=== PATIENT | male | born 1950 | race Caucasian/White ===

== ENCOUNTER 2021-10-03 10:00 | Outpatient (CLI) | payer MEDICARE, OTHER, SELFPAY ==
--- NOTE | ~2021-10-03 | CT_ITS ---
EXAMINATION:CT lung screening DATE: 10/03/2021 10:18 INDICATION: Personal history of tobacco dependence. Current smoker with 30 pack year history. TECHNIQUE: Computed tomography (CT) of the chest was performed without intravenous contrast. Automate d exposure control and iterative reconstruction technique were employed. The dose-length product (DLP ) was 87.41 mGy-cm. COMPARISON: Chest CT 06/18/15 FINDINGS: There is mild scarring at the lung apices. There is mild emphysema. There is chronic periph eral septal thickening in the lungs with a lower lung predominance, which may be nonspecific intersti tial pneumonia or usual interstitial pneumonia. Again seen is a 4 mm nodule in right lower lobe. No p leural effusion. The heart size is normal. There are coronary artery calcifications. No pericardial e ffusion. There is mild thoracic spondylosis. IMPRESSION: 1. Lung-RADS category 2: Benign appearance or behavior. Continue annual screening with noncontrast lo w-dose chest CT in 12 months. Reviewed, dictated and finalized at location B. IMPRESSION: 1. Lung-RADS category 2: Benign appearance or behavior. Continue annual screeni ng with noncontrast low-dose chest CT in 12 months.
== END 2021-10-03 10:01 | disposition home or self-care (01) ==
LOC: ANHIMG 10:01
PROVIDERS: PCP Family Medicine; Visit Provider Family Medicine
DX: Z87.891 Personal history of nicotine dependence (principal); Z12.2 Encounter for screening for malignant neoplasm of respiratory organs
CPT/HCPCS: 71271

== ENCOUNTER 2021-12-23 13:45 | Outpatient (CLI) | payer MEDICARE, OTHER, SELFPAY ==
--- NOTE | ~2021-12-23 | US_ITS ---
EXAMINATION: US art doppler w press LE BI DATE: 12/23/2021 15:14 INDICATION: Peripheral vascular disease. TECHNIQUE: Segmental pressures and plethysmographic and Doppler waveforms of the brachial and lower e xtremity arteries were obtained. COMPARISON: None. FINDINGS: Right and left brachial artery pressures of 110 mm Hg and 112 mm Hg, respectively, are concordant (no rmal difference <= 30 mmHg). The right and left high-thigh pressure indices are 1.10 and 10.3, respec tively (normal > 1.2). The right ankle-brachial index (SALIMA) is 1.12 (normal >= 0.9-1). The right great toe-brachial index (T BI) is 0.60 (normal >= 0.6-0.8). The right lower extremity segmental pressure gradients are normal (n ormal gradients <= 20-30 mmHg between adjacent levels on the same leg or the same levels on the two l egs). Arterial waveforms are biphasic with brisk systolic upstrokes throughout the arteries of the ri ght lower limb. The left SALIMA is 0.90. The left TBI is 0.53. The left lower extremity segmental pressure gradients are increased between the left above and [id number] popliteal arteries. Arterial waveforms are bipha sic with brisk systolic upstrokes throughout the arteries of the left lower limb. IMPRESSION: 1. Mild arterial occlusive disease to bilateral lower limbs with mildly decreased bilateral high thig h pressure indices, borderline right TBI and mildly decreased left SALIMA and TBI. Reviewed, dictated and finalized at location A. IMPRESSION: 1. Mild arterial occlusive disease to bilateral lower limbs with mildly decreas ed bilateral high thigh pressure indices, borderline right TBI and mildly decre ased left SALIMA and TBI.
== END 2021-12-23 13:46 | disposition home or self-care (01) ==
PROVIDERS: PCP Family Medicine; Visit Provider Family Medicine
DX: I70.203 Unspecified atherosclerosis of native arteries of extremities, bilateral legs (principal)
CPT/HCPCS: 93923

== ENCOUNTER 2022-06-25 08:50 | Outpatient (CLI) | payer MEDICARE, OTHER, SELFPAY | END 2022-06-25 08:51 | disposition home or self-care (01) | LOC: ANHAUDIO 08:51 | PROVIDERS: PCP Family Medicine; Visit Provider Family Medicine | DX: H90.3 Sensorineural hearing loss, bilateral (principal) | CPT/HCPCS: 92557; 92567 ==

== ENCOUNTER 2022-12-30 13:22 | Outpatient (CLI) | payer MEDICARE, OTHER, SELFPAY ==
--- NOTE | ~2022-12-30 | CT_ITS ---
EXAMINATION: CT lung screening DATE: 12/30/2022 13:39 INDICATION: Lung cancer screening TECHNIQUE: Computed tomography (CT) of the chest was performed without intravenous contrast. The dose -length product was 87.07 mGy-cm. Automated exposure control and iterative reconstruction technique w ere employed. COMPARISON: CT dated 10/04/2011 FINDINGS: Heart size is normal. No significant pleural or pericardial effusion. There is atherosclero sis of the aorta and coronary arteries. No thoracic lymphadenopathy. No endobronchial lesions. No foc al airspace consolidation. There is a 3 mm right lower lobe nodule adjacent to the fissure. There is right lower lobe atelectasis/scarring. There is a calcified nodule in the left lung base, consistent with chronic granulomatous disease. There are additional small nodules measuring 3 mm or less in both lungs. No new pulmonary nodules or masses. Moderate thoracic spondylosis. No acute osseous abnormali ty. IMPRESSION: 1. Lung-RADS category 2: Benign appearance or behavior. Continue annual screening with noncontrast lo w-dose chest CT in 12 months. Reviewed, dictated and finalized at location B. IMPRESSION: 1. Lung-RADS category 2: Benign appearance or behavior. Continue annual screeni ng with noncontrast low-dose chest CT in 12 months.
== END 2022-12-30 13:23 | disposition home or self-care (01) ==
PROVIDERS: PCP Family Medicine; Visit Provider Family Medicine
DX: Z12.2 Encounter for screening for malignant neoplasm of respiratory organs (principal); Z87.891 Personal history of nicotine dependence
CPT/HCPCS: 71271

== ENCOUNTER 2024-01-24 06:49 | Outpatient (CLI) | payer MEDICARE, OTHER, SELFPAY ==
--- NOTE | ~2024-01-24 | MR_ITS ---
MRI of the lumbar spine Clinical History: Spinal stenosis Technique: Axial T2-weighted images, and sagittal T1-weighted, T2-weighted, and and T2 fat-sat images were acquired. Findings: There is no fracture or subluxation of the lumbar spine. Vertebral bodies maintain normal h eight and alignment. No bone marrow signal abnormality seen. At L1-L2, there is no disc bulge or herniation. There is mild facet arthropathy. No central canal stephenie nosis or neural foraminal narrowing. At L2-L3, there is minimal disc bulge with moderate facet arthropathy. No central canal stenosis. The re is mild bilateral neural foraminal narrowing. At L3-L4, there is advanced degenerative disc narrowing. There is diffuse disc bulge with moderate fa cet arthropathy. There is minimal central canal stenosis. There is moderate to advanced left neural f oraminal narrowing, and advanced right neural foraminal narrowing. At L4-L5, there is mild diffuse disc bulge with advanced facet arthropathy. No central canal stenosis . There is moderate to advanced right neural foraminal narrowing, and moderate left neural foraminal narrowing. At L5-S1, there is minimal disc bulge with moderate facet arthropathy. No central canal stenosis or n eural foraminal narrowing. Paravertebral soft tissues are unremarkable. Impression: Moderate degenerative spondylosis, as detailed above. Reviewed, dictated and finalized at [facility]. Impression: Moderate degenerative spondylosis, as detailed above.
== END 2024-01-24 06:50 | disposition home or self-care (01) ==
PROVIDERS: PCP Family Medicine; Visit Provider Family Medicine
DX: M48.062 Spinal stenosis, lumbar region with neurogenic claudication (principal); M47.896 Other spondylosis, lumbar region
CPT/HCPCS: 72148

== ENCOUNTER 2024-04-03 12:36 | Outpatient (CLI) | payer MEDICARE, OTHER, SELFPAY ==
--- NOTE | ~2024-04-03 | CT_ITS ---
EXAMINATION:CT lung screening DATE: 04/03/2024 13:00 INDICATION: Personal history of nicotine dependence. Smoker who quit 5 years ago with 45 pack year hi story. TECHNIQUE: Computed tomography (CT) of the chest was performed without intravenous contrast. Automate d exposure control and iterative reconstruction technique were employed. The dose-length product (DLP ) was 96.67 mGy-cm. COMPARISON: Chest CT 12/30/2022 FINDINGS: There is mild scarring at the lung apices. There is mild emphysema. There are tree-in-bud o pacities with small airspace opacity in left lower lobe, consistent with mild pneumonia. There is a 3 mm nodule in left upper lobe. There is a 3 mm nodule in right lower lobe. No pleural effusion. The h eart size is normal. No pericardial effusion. There are coronary artery calcifications. There is mild thoracic spondylosis. IMPRESSION: 1. Lung-RADS category 2S: Benign appearance or behavior. Continue annual screening with noncontrast l ow-dose chest CT in 12 months. 2. Mild left lower lobe pneumonia. Reviewed, dictated and finalized at location A. T GRADING SUPERVISOR IMPRESSION: 1. Lung-RADS category 2S: Benign appearance or behavior. Continue annual screen ing with noncontrast low-dose chest CT in 12 months. 2. Mild left lower lobe pneumonia.
== END 2024-04-03 12:37 | disposition home or self-care (01) ==
PROVIDERS: PCP Family Medicine; Visit Provider Family Medicine
DX: Z12.2 Encounter for screening for malignant neoplasm of respiratory organs (principal); J18.9 Pneumonia, unspecified organism; Z87.891 Personal history of nicotine dependence
CPT/HCPCS: 71271

== ENCOUNTER 2024-06-30 10:05 | Outpatient (CLI) | payer MEDICARE, OTHER, SELFPAY ==
--- NOTE | ~2024-06-30 | XR_ITS ---
Clinical Indication: Cough PA and lateral views of the chest: Comparison: None Findings: The lungs are clear, without evidence of focal consolidation or pleural effusion. Possible COPD. Cardiomediastinal silhouette is within normal limits. Bones and soft tissues are unremarkable. Impression: Clear lungs. Possible COPD. Reviewed, dictated and finalized at location . Impression: Clear lungs. Possible COPD.
--- OUTSIDE RECORDS SUMMARY | 2024-06-30 10:48 | XMS_ITS | CONTINUITY OF CARE DOCUMENT ---
Author Name jitendraarpan joneltomas Address Unknown Organization [facility] Address [address] [place] [address] Phone [phone] Care Team Providers Care Business Partner Name Role Phone Rusty GONZALEZ, Amando Unavailable Flora VIRTUAL REALITY SPECIALIST, Muna Unavailable [phone] VALERIA GONZALEZ, MARILYN Unavailable PROBLEMS Condition Status Date Provider Notes Cardiology examination active Amando Ojeda MD Leg pain-left active Amando Ojeda MD Peripheral artery disease active Amando roland MD HYPERTENSION active Amando Ojeda MD Hyperlipidemia active Amando Ojeda MD ENCOUNTERS Date Type Provider Location Encounter Diag nosis 3 - 3 In-person encounter Office Visit Amando Ojeda MD [facility] Cardiology examinationLeg pain-leftPeripheral artery diseaseHYPERTENSIONHyperlipidemia VITAL SIGNS Date Observation Value Provider Body Mass Index (Ratio) 23.24 kg/m2 Selvin Ojeda MD blood pressure, diastolic 79 mm[Hg] Rose nkLogic blood pressure, systolic 144 mm[Hg] Abbey kLogsixto blood pressure, cuff size regular Bekah Tolentino blood pressure, diastolic 79 mm[Hg] Bekah Tolentino blood pressure, systolic 144 mm[Hg] Shari Tolentino oxygen saturation, oximetry 96 % Kiki Tolentino respiratory rate E&M 18 /min Kiki Rajan pulse rate 73 /min Kiki Tolentino weight E&M 162 [lb_av] Kiki Rajan height E&M 70 [in_i] Kiki Rajan HISTORY OF MEDICATION USE Medication Status Instructions Dates Provider Indications Com ments gabapentin 300 mg capsule active Kiki Tolentino rosuvastatin 10 mg tablet active Kiki Tolentino hydrocodone-acetaminophe n 7.5-325 mg tablet active Kiki Tolentino metoprolol succinate 50 mg tablet extended release 24 hr active Kiki Tolentino cilostazol 100 mg tablet active Kiki Tolentino lisinopril-hydrochloroth iazide 20-12.5 mg tablet active Kiki Tolentino SOCIAL HISTORY Date Observation Value Provider drug use no Amando Ojeda MD alcohol use no Amando Ojeda MD social history E&M quit 5-6 year s Smoking History: Bryn franklin is a former smoker. Amando Ojeda MD social history reviewed E&M reviewed - no changes required Amando Ojeda MD smoking status Former smoker Amando Ojeda MD INSURANCE PROVIDERS Payer name Policy type / Coverage type [place] [employer] republic[employer] ID [place] MED[employer] Medicare [id number] TREATMENT PLAN Date Name Performer [id number],S,on a statin U olga Ojeda MD [id number],S, B P today: 144/79 Amando Ojeda MD [id number],C,H as indication of pad and although his davey was not bad he had an indication he had a decreased segmental pressures. on the left so he may have sfa/pop disease. will rder a cta of the leg arterial circulation. Amando Ojeda MD Cardiology:on a statin Amando bernard MD Cardiology: B P today: 144/79 Amando Ojeda MD Cardiology:Has indic ation of pad and although his davey was not bad he had an indication he had a decreased segmental pressures. on the left so he may have sfa/pop disease. will rder a cta of the leg arterial circulation. Amando Ojeda MD Date Name CT Angio AIF (Abd, l ower extremities) HISTORY OF PROCEDURES Procedure Date Procedure Name Provider Procedure Notes S tatus EKG Amando Ojeda MD completed
--- OUTSIDE RECORDS SUMMARY | 2024-06-30 10:48 | XMS_ITS | Clinical Summary ---
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 Gender Identity Not on file Sexual Orientation Not on file Plan of Treatment Health Maintenance Due Date Last Done Comments Hepatitis C Virus (HCV) Screening 1950 TdaP Immunization 1950 Colonoscopy 02/05/1997 Colorectal Cancer Screening 02/05/1997 Cologuard 02/05/2002 Immunochemical Fecal Occult Blood 02/05/2002 Zoster Immunization (2 of 3) 01/22/2017 11/27/2016 Influenza Immunization (#1) 12/19/202302/17, 02/13/2017, 02/08/2015 SARS-COV-2 Immunization ( - season) 2023 Pneumococcal Immunization (5 0+ years) (3 of 3 - PCV20 or PCV21) 02/27/2024 02/26/2019, 04/01/2012 Respiratory Syncytial Virus (RSV) Immunization (Adult) (1 - 1-dose 75+ series) 02/05/2027 Pneumococcal Immunization Combined Discontinued 02/26/2019, 04/01/2012 Hepatitis B Immunization Aged Out No longer eligible based on patient's age to complete this topic Meningococcal Immunization (ACWY) Aged Out No longer eligible based on patient's age to complete this topic Rotavirus Immunization Aged Out No lo nger eligible based on patient's age to complete this topic
--- OUTSIDE RECORDS SUMMARY | 2024-06-30 10:48 | XMS_ITS | Clinical Summary ---
Author Organization [facility] Address [address] [place] [id number] Care Team Providers Care Software Project Manager Name Role Phone Unavailable Primary Care Provider Unavailabl e Social History Tobacco Use Types Packs/Day Years Used Date Smoking Tobacco: Never Assessed Sex and Gender Information Value Date Recorded Sex Assigned at Not on file Legal Sex Male 6:08 PM CDT Gender Identity Not on file Sexual Orientation Not on file Plan of Treatment Health Maintenance Due Date Last Done Comments Colorectal Cancer Screening Colonoscopy (10 Years) 1950 Hepatitis C 02/05/1970 DTaP, Tdap and Td Vaccines ( 1 - Tdap) 02/05/1971 Zoster Vaccines (1 of 2) 02/05/2002 Pneumococcal Vaccine: 65+ Ye ars (1 of 1 - PCV) 02/05/2017 COVID-19 Vaccine ( - 2023-2 5 season) 2023 Influenza Adult (#1) 2024 RSV Immunization or 60+ Years (1 - 1-dose 75+ series) 02/05/2027 Meningococcal B Vaccine Aged Out No l onger eligible based on patient's age to complete this topic Meningococcal Vaccine Aged Out No jose milton eligible based on patient's age to complete this topic RSV Immunizations Under 20 Months Aged Out No longer eligible based on patient's age to complete this topic
== END 2024-06-30 10:06 | disposition home or self-care (01) ==
PROVIDERS: PCP Family Medicine; Visit Provider Physician Assistant
DX: R05.9 Cough, unspecified (principal)
CPT/HCPCS: 71046

== ENCOUNTER 2024-10-25 00:37 | Day surgery (SDC) | payer MEDICARE, OTHER, SELFPAY ==
[2024-10-09 15:03] VITALS: BMI 22.4
--- OUTSIDE RECORDS SUMMARY | 2024-10-25 00:42 | XMS_ITS | Clinical Summary ---
Author Organization [facility] Address [address] [place] [id number] Care Team Providers Care Shift Supervisor Name Role Phone Unavailable Primary Care Provider [...] Td Vaccines ( 1 - Tdap) 02/05/1971 Pneumococcal Vaccine: 50+ Ye ars (1 of 1 - PCV) 02/05/2002 Zoster Vaccines (1 of 2) 02/05/2002 COVID-19 Vaccine ( - 2023-2 5 season) 2023 RSV Immunization or 60+ Years (1 - [...]
--- OUTSIDE RECORDS SUMMARY | 2024-10-25 00:42 | XMS_ITS | Clinical Summary ---
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 Gender Identity Not on file Sexual Orientation Not on file Plan of Treatment Health Maintenance Due Date Last Done Comments Hepatitis C Virus (HCV) Screening 1950 TdaP Immunization 1950 Cologuard 02/05/1997 Colonoscopy 02/05/1997 Colorectal Cancer Screening 02/05/1997 Immunochemical Fecal Occult Blood 02/05/1997 Zoster Immunization (2 of 3) 01/22/2017 11/27/2016 SARS-COV-2 Immunization ( - 2023- season) 2023 Pneumococcal Immunization (50+ years) (3 of 3 - PCV20 or PCV21) 02/27/2024 02/26/2019, 04/01/2012 Influenza Immunization (#1) 12/18/202402/17, 02/13/2017, 02/08/2015, Additional history exists Respiratory Syncytial Virus (RSV) Immunization (Adult) (1 - 1-dose 75+ series) 02/05/2027 Pneumococcal Immunization Combined Discontinued 02/26/2019, 04/01/2012 Hepatitis B Immunization Aged Out No longer eligible based on patient's age to complete this topic Human Papillomavirus (HPV) Immunization Aged Out No longer eligible based on patient's age to complete this topic Meningococcal Immunization (ACWY) Aged Out No longer eligible based on patient's age to complete this topic Rotavirus Immunization Aged Out No lo nger eligible based on patient's age to complete this topic
[2024-10-25 11:38] VITALS: BP 107/66; PULSE 102; RESP 18; TEMP 36.7; O2SAT 98
[2024-10-25] MEDS: LACTATED RINGERS 1,000 ML 150 ML IV CONT (11:41)
--- NOTE | 2024-10-25 11:56 | P.PNAN_ITS ---
Anes - Initial Pre Proc Eval Procedure: Operation Date: 10/25/24 13:00 Proposed Procedures p Screening Colonoscopy - Bartolo Olmedo MD Date/Time: 10/25/24 11:56 Surgeon: Bartolo Olmedo MD Pre Op Diagnosis: Screening Patient Data Age: 74 Gender: M Height: 1.78 m Weight: 68.3 kg Last Vital Signs Temp 98.0 F 10/25/24 11:38 Pulse 102 H 10/25/24 11:38 Resp 18 10/25/24 11:38 BP 107/66 10/25/24 11:38 Pulse Ox 98 10/25/24 11:38 O2 Del Method Room Air 10/25/24 11:38 Allergies Allergy/AdvReac Type Severity Reaction Status Date / Time duloxetine Allergy Intermediate mental Verified 10/09/24 15:00 confusion Home Medications ?Medication ?Instructions ?Recorded ?Confirmed ?Type cilostazol 100 mg tablet 100 mg PO BID #200 tabs 06/30/24 10/25/24 Rx lisinopril 20 1 tablet PO DAILY #100 tabs 06/30/24 10/25/24 Rx mg-hydrochlorothiazide 12.5 mg tablet metoprolol succinate 50 mg 50 mg PO BID #200 tabs 06/30/24 10/25/24 Rx tablet,extended release 24 hr pantoprazole 40 mg tablet,delayed 40 mg PO QAM #90 tabs 06/30/24 10/25/24 Rx release rosuvastatin 10 mg tablet See Rx Instructions .Route 06/30/24 10/25/24 Rx .COMPLEX #100 tabs fluticasone fur. 100 mcg-umeclid 1 inh inhalation Q24H #60 ea 07/03/24 10/25/24 Rx 62.5 mcg-vilant 25 mcg inhalat.powder (Trelegy Ellipta) hydrocortisone 2.5 % topical cream 1 applic topical BID PRN skin 08/17/24 10/09/24 Rx irritation #20 grams finasteride 5 mg tablet 5 mg PO DAILY #90 tabs 10/17/24 10/25/24 Rx Patient hx anesthesia problems: none Family hx anesthesia problems: none Results Review: All pre-operative results and documents have been reviewed as part of the pre- operative evaluation. [facility] Past Medical History Medical History LLL pneumonia History of tobacco use Atherosclerosis of [place] coronary artery of [place] heart without angina pectoris Chronic obstructive pulmonary disease, unspecified Chronic pain syndrome Essential (primary) hypertension (06/26/16) Mixed hyperlipidemia Nicotine dependence, unspecified, uncomplicated Peripheral vascular disease, unspecified Pulmonary nodules Spinal stenosis of lumbar region Family History Family History Mother Patient's mother is in good health Sibling Patient's sister is in good health Patient's brother is in good health Father Acute myocardial infarction, Onset Age: 72 Other Diabetes mellitus Social History Social History Social History: Smoking packs per day: 1 Smoking cigarettes per day: 20.0 Years smoked: 40 Smoking pack-years: 40.00 Smoking status: Smoker, status unknown Tobacco type: e-cigarettes/vaping Second hand tobacco smoke exposure: Yes Smoking end date: 04/19/14 Additional smoking assessment comments: Pt still vapes but doesn't smoke cigarettes. Alcohol intake: never Substance use: never Substance use type: does not use Lack of Transportation: No Lack of Food: Never True Current Housing: I Have Housing Concerned About Future Housing: No Difficulty Paying Gas/Electric Bills: No Difficulty Paying for Meds: No Currently Unemployed: No Education: Decline to Answer Difficulty w/ Childcare or Family Care: No Living arrangements: with family Occupation/Education: occupation Gender identity (if verbalized by the patient): Male Sexual Orientation (if Verbalized by the Patient): Straight or Heterosexual Anes - Eval Final PreProcedure Day of Procedure 10/25/24 11:56 Patient weight: normal Lungs: normal air movement Airway: Mallampati scale class II and special considerations (Missing many teeth on the lower aspect. ) Neurological: alert and oriented Last oral intake: >/= 8 hours ASA classification: III Emergent: no Anesthetic plan: proceed Anesthesia type and monitoring: general GIVS and standard monitoring Results Review: All pre-operative results and documents have been reviewed as part of the pre- operative evaluation. COPD quit smoking 2020, now vapes, HTN, hyperlipidemia. Informed Consent: The patient's anesthetic plan and its attendant risks and benefits were discussed with the patient/family/POA. Questions were solicited and answers provided to the satisfaction of the patient/family/POA.
--- NOTE | 2024-10-25 12:08 | P.HP_ITS ---
History of Present Illness History of Present Illness Consent: Risks, benefits, and alternatives have been discussed and questions answered. Patient agrees to proceed with procedure. Chief complaint: Screening Narrative: Vikram Schrader is a 74 year old male here for first colonoscopy, history of rectal discomfort and blood in stool Review of Systems Review of Systems: All systems reviewed & are unremarkable except as noted in HPI and below PMFSH Past Medical History Medical History (Updated 10/25/24 @ 12:09 by Bartolo Olmedo MD) Rectal bleeding LLL pneumonia History of tobacco use Atherosclerosis of [place] coronary artery of [place] heart without angina pectoris Chronic obstructive pulmonary disease, unspecified Chronic pain syndrome Essential (primary) hypertension (06/26/16) Mixed hyperlipidemia Nicotine dependence, unspecified, uncomplicated Peripheral vascular disease, unspecified Pulmonary nodules Spinal stenosis of lumbar region Family History Family History Mother Patient's mother is in good health Sibling Patient's sister is in good health Patient's brother is in good health Father Acute myocardial infarction, Onset Age: 74 Other Diabetes mellitus Social History Social History Social History: Smoking packs per day: 1 Smoking cigarettes per day: 20.0 Years smoked: 40 Smoking pack-years: 40.00 Smoking status: Smoker, status unknown Tobacco type: e-cigarettes/vaping Second hand tobacco smoke exposure: Yes Smoking end date: 04/19/14 Additional smoking assessment comments: Pt still vapes but doesn't smoke cigarettes. Alcohol intake: never Substance use: never Substance use type: does not use Lack of Transportation: No Lack of Food: Never True Current Housing: I Have Housing Concerned About Future Housing: No Difficulty Paying Gas/Electric Bills: No Difficulty Paying for Meds: No Currently Unemployed: No Education: Decline to Answer Difficulty w/ Childcare or Family Care: No Living arrangements: with family Occupation/Education: occupation Gender identity (if verbalized by the patient): Male Sexual Orientation (if Verbalized by the Patient): Straight or Heterosexual Meds Home Medications and Allergies Home Medications ?Medication ?Instructions ?Recorded ?Confirmed ?Type cilostazol 100 mg tablet 100 mg PO BID #200 tabs 06/30/24 10/25/24 Rx lisinopril 20 1 tablet PO DAILY #100 tabs 06/30/24 10/25/24 Rx mg-hydrochlorothiazide 12.5 mg tablet metoprolol succinate 50 mg 50 mg PO BID #200 tabs 06/30/24 10/25/24 Rx tablet,extended release 24 hr pantoprazole 40 mg tablet,delayed 40 mg PO QAM #90 tabs 06/30/24 10/25/24 Rx release rosuvastatin 10 mg tablet See Rx Instructions .Route 06/30/24 10/25/24 Rx .COMPLEX #100 tabs fluticasone fur. 100 mcg-umeclid 1 inh inhalation Q24H #60 ea 07/03/24 10/25/24 Rx 62.5 mcg-vilant 25 mcg inhalat.powder (Trelegy Ellipta) hydrocortisone 2.5 % topical cream 1 applic topical BID PRN skin 08/17/24 10/09/24 Rx irritation #20 grams finasteride 5 mg tablet 5 mg PO DAILY #90 tabs 10/17/24 10/25/24 Rx Allergies Allergy/AdvReac Type Severity Reaction Status Date / Time duloxetine Allergy Intermediate mental Verified 10/09/24 15:00 confusion Vital Signs Vital Signs - 24 hr 10/25/24 11:38 Temperature 98.0 F Pulse Rate 102 H Respiratory Rate 18 Blood Pressure 107/66 Pulse Oximetry 98 Oxygen Delivery Room Air Exam Const: General: comfortable and no acute distress HENMT: Face/Nose/Sinus: Normal nares present Eyes: General: appearance normal, both eyes and all related structures Neck: Neck: no JVD Resp: Auscultation: clear to auscultation bilaterally Cardio: Rate: regular rate Rhythm: regular rhythm GI: Inspection: non-distended GI Palp: Yes Soft to palpation Skin: General skin exam: normal color Neuro: Speech: normal speech Extrem: General: normal to inspection Psych: Mental Status: mental status grossly normal Assessment and Plan Assessment and plan (1) Rectal bleeding: Code(s): K62.5 - Hemorrhage of anus and rectum Status: Acute Assessment and Plan: colonoscopy
[2024-10-25 12:20] VITALS: BP 97/59; PULSE 82; RESP 19; O2SAT 97
[2024-10-25 12:30] VITALS: BP 112/62; PULSE 72; RESP 21; O2SAT 97
[2024-10-25 12:40] VITALS: BP 106/70; PULSE 76; RESP 18; O2SAT 98
== END 2024-10-25 12:50 | disposition home or self-care (01) ==
PROVIDERS: PCP Family Medicine; Referring Provider Physician Assistant; Visit Provider Internal Medicine Gastroenterology
PROC: 0DJD8ZZ Inspection of Lower Intestinal Tract, Via Natural or Artificial Opening Endoscopic (ICD-10-PCS; CPT 45378; principal; 2024-10-25 13:00)
DX: Z12.11 Encounter for screening for malignant neoplasm of colon (principal); K64.8 Other hemorrhoids; K57.30 Diverticulosis of large intestine without perforation or abscess without bleeding; I10 Essential (primary) hypertension; E78.2 Mixed hyperlipidemia; I25.10 Atherosclerotic heart disease of native coronary artery without angina pectoris; J44.9 Chronic obstructive pulmonary disease, unspecified; G89.4 Chronic pain syndrome; I73.9 Peripheral vascular disease, unspecified; M48.061 Spinal stenosis, lumbar region without neurogenic claudication; F17.290 Nicotine dependence, other tobacco product, uncomplicated; Z79.51 Long term (current) use of inhaled steroids; Z82.49 Family history of ischemic heart disease and other diseases of the circulatory system
CPT/HCPCS: G0121; J2704; J7120